=== PATIENT | male | born 1930 | race Caucasian/White ===

== ENCOUNTER 2018-07-03 09:07 | Day surgery (SDC) | payer MEDICARE, OTHER ==
[~2018-07-03] VITALS: Ht 177.8 cm; Wt 68.7 kg
[~2018-07-03 09:07] MED LIST: ALLO300 PO; ASCO500 PO; ASPI81CH; ASPI81CH PO; ASPI81EC PO; CALCA500CH; CALCA500CH PO; CALCAVITDA PO; CHOL10002 PO; CILO50; CODACE30 PO; CORAL CALCIUM1 EACH PO; Co Q-1010 MG PO; DAILY VALUE1 EACH PO; DIGO.25 PO; EPIN.3I IM; ESTER-C 1,0001 EACH PO; FAMO10 PO; FINA5 PO; FURO40 PO; Fergon240 M1 PO; Ferrous Sulfat325 M2 PO; Fibercon625 MG PO; HYDACE5 PO; HYDCHL25 PO; Hair, Skin & N1 EACH PO; Jantoven2 MG PO; KRILL OIL 5001 EACH PO; KRILL OIL500 MG PO; L-ARGININE1000 MG PO; LEVSOD50 PO; LIDO2L MM; LISI5 PO; MACA500 MG PO; METO25 PO; METO25ER; METO50ER PO; PROBIOTIC1 EAC1 PO; SIMV10 PO; SPIR25 PO; TAMS.4ER PO; UBID10 PO; VITAMIN D-32000 UNIT PO; VITAMIN E400 UNIT PO; WARF4 PO; WARF5 PO; [UNRECOGNIZED DRUG - OTHER] PO
== END 2018-07-03 12:00 | disposition home or self-care (01) ==
LOC: ORSCSDS 09:07
PROVIDERS: Orthopaedic Surgery
PROC: 01N40ZZ Release Ulnar Nerve, Open Approach (ICD-10-PCS; principal; 2018-07-03 10:30)
DX: G56.22 Lesion of ulnar nerve, left upper limb (principal); I48.0 Paroxysmal atrial fibrillation; I10 Essential (primary) hypertension; E03.9 Hypothyroidism, unspecified; N40.0 Benign prostatic hyperplasia without lower urinary tract symptoms; Z79.01 Long term (current) use of anticoagulants; Z79.82 Long term (current) use of aspirin; Z79.899 Other long term (current) drug therapy; Z87.891 Personal history of nicotine dependence
CPT/HCPCS: J0690; J1100; J2405; J2795; J3010; J7120

== ENCOUNTER 2019-01-16 08:47 | Emergency (ER) | payer MEDICARE, OTHER ==
[~2019-01-16] VITALS: Ht 177.8 cm; Wt 69.4 kg
[~2019-01-16 08:47] MED LIST changes: +ENOX40I SC; +Flecainide Acet50 MG PO; +L-ARGININE PO; +Percocet 5-3251 EACH PO
[2019-01-16] MEDS ORDERED: COLCHICINE0.6 MG PO (10:02)
== END 2019-01-16 10:11 | disposition home or self-care (01) ==
LOC: ER 08:47
DX: M10.9 Gout, unspecified (principal); I10 Essential (primary) hypertension; I48.91 Unspecified atrial fibrillation; Z91.030 Bee allergy status; Z88.8 Allergy status to other drugs, medicaments and biological substances; Z88.5 Allergy status to narcotic agent; Z79.899 Other long term (current) drug therapy; Z79.01 Long term (current) use of anticoagulants; Z87.891 Personal history of nicotine dependence
CPT/HCPCS: 73130; 99283-25

== ENCOUNTER 2019-01-29 10:35 | Day surgery (SDC) | payer MEDICARE, OTHER ==
[~2019-01-29] VITALS: Ht 175.3 cm; Wt 72.7 kg
[~2019-01-29 10:35] MED LIST changes: +COLCHICINE0.6 MG PO
== END 2019-01-29 12:28 | disposition home or self-care (01) ==
LOC: ORSCSDS 10:35
PROVIDERS: Anesthesiology
PROC: 3E0R33Z Introduction of Anti-inflammatory into Spinal Canal, Percutaneous Approach (ICD-10-PCS; principal; 2019-01-29 12:30)
DX: M51.16 Intervertebral disc disorders with radiculopathy, lumbar region (principal); I48.91 Unspecified atrial fibrillation; E03.9 Hypothyroidism, unspecified; E78.00 Pure hypercholesterolemia, unspecified; I10 Essential (primary) hypertension; Z87.891 Personal history of nicotine dependence; Z79.01 Long term (current) use of anticoagulants; Z79.82 Long term (current) use of aspirin; Z79.899 Other long term (current) drug therapy
CPT/HCPCS: J1040

== ENCOUNTER 2019-10-28 11:29 | Emergency (ER) | payer MEDICARE, OTHER ==
[~2019-10-28] VITALS: Ht 177.8 cm; Wt 68.0 kg
== END 2019-10-28 13:17 | disposition home or self-care (01) ==
LOC: ER 11:29
DX: M25.551 Pain in right hip (principal); I10 Essential (primary) hypertension; I48.91 Unspecified atrial fibrillation; N40.0 Benign prostatic hyperplasia without lower urinary tract symptoms; Z88.6 Allergy status to analgesic agent; Z91.030 Bee allergy status; Z79.01 Long term (current) use of anticoagulants; Z79.899 Other long term (current) drug therapy; Z87.891 Personal history of nicotine dependence; W19.XXXA Unspecified fall, initial encounter
CPT/HCPCS: 73502; 99283-25

== ENCOUNTER 2020-01-06 10:27 | Day surgery (SDC) | payer MEDICARE, OTHER ==
[~2020-01-06] VITALS: Ht 177.8 cm; Wt 70.5 kg
[~2020-01-06 10:27] MED LIST changes: +Aspir 8181 MG PO; +JANTOVEN2 MG PO
[2020-01-06] MEDS ORDERED: ELIQUIS5 MG PO (11:41)
--- NOTE | 2020-01-06 14:00 | NUR ---
PT AND HIS VERBALIZED UNDERSTANDING OF D/C INSTRUCTIONS. DISPO PAPERWORK PROVIDED TO TAKE HOME. PT TOLERATES PO FLUIDS WITH NO DIFFICULTIES, DENIES CP OR SOB, IS ABLE TO AMBULATE WITH STEADY GAIT, DRESSES SELF WITH NO NEEDED ASSISTANCE. IV REMOVED FROM RAC WITH CATH INTACT, PRESSURE DRESSING APPLIED. NO ACUTE DISTRESS NOTED AT TIME OF DISCHARGE. PT ENCOURAGED TO RESUME ALL PREVIOUSLY PRESCRIBED MEDICATIONS. VERBAL UNDERSTANDING FROM PT. W/C PROVIDED TO PT, TO DRIVE PT HOME. VSS.
== END 2020-01-06 23:21 | disposition home or self-care (01) ==
LOC: MHTC 10:27
PROC: 5A2204Z Restoration of Cardiac Rhythm, Single (ICD-10-PCS; principal; 2020-01-06)
DX: I48.92 Unspecified atrial flutter (principal); I25.10 Atherosclerotic heart disease of native coronary artery without angina pectoris; I11.0 Hypertensive heart disease with heart failure; I50.30 Unspecified diastolic (congestive) heart failure; I48.0 Paroxysmal atrial fibrillation; Z95.2 Presence of prosthetic heart valve; E03.9 Hypothyroidism, unspecified; Z79.01 Long term (current) use of anticoagulants; Z79.899 Other long term (current) drug therapy; Z88.8 Allergy status to other drugs, medicaments and biological substances
CPT/HCPCS: 92960; 93005; 93010; 93312; 93325; 99152; J2250; J3010; J7030

== ENCOUNTER 2020-07-09 00:26 | Day surgery (SDC) | payer MEDICARE, OTHER ==
[~2020-07-09 00:26] MED LIST changes: +ELIQUIS5 MG PO; -METO25 PO; +METO25ER PO; -VITAMIN D-32000 UNIT PO; +Vitamin D2000 UNIT PO
[2020-08-24] MEDS ORDERED: HYDROCHLOROTH12.5 MG PO (14:56)
== END 2020-07-09 22:44 | disposition home or self-care (01) ==
LOC: WOUND 00:26
DX: L89.892 Pressure ulcer of other site, stage 2 (principal); I73.9 Peripheral vascular disease, unspecified; G61.9 Inflammatory polyneuropathy, unspecified; I11.0 Hypertensive heart disease with heart failure; I50.9 Heart failure, unspecified; E03.9 Hypothyroidism, unspecified; Z79.899 Other long term (current) drug therapy

== ENCOUNTER 2020-07-16 00:19 | Day surgery (SDC) | payer MEDICARE, OTHER ==
[~2020-07-16 00:19] MED LIST changes: +METO25 PO; -METO25ER PO; +VITAMIN D-32000 UNIT PO; -Vitamin D2000 UNIT PO
== END 2020-07-16 23:11 | disposition home or self-care (01) ==
LOC: WOUND 00:19
DX: L89.892 Pressure ulcer of other site, stage 2 (principal); I73.9 Peripheral vascular disease, unspecified; G61.9 Inflammatory polyneuropathy, unspecified; Z79.899 Other long term (current) drug therapy
CPT/HCPCS: Q4196

== ENCOUNTER 2020-07-23 00:22 | Day surgery (SDC) | payer MEDICARE, OTHER ==
[~2020-07-23 00:22] MED LIST changes: -METO25 PO; +METO25ER PO; -VITAMIN D-32000 UNIT PO; +Vitamin D2000 UNIT PO
[2020-07-23] MEDS ORDERED: EUTHYROX50 MCG PO (13:54)
[2020-07-23] MEDS ORDERED: FURO20 PO (13:55)
[2020-07-23] MEDS ORDERED: POTA10T PO (13:56)
[2020-07-23] MEDS ORDERED: Coumadin2 MG PO (13:56)
[2020-07-23] MEDS ORDERED: ENTRESTO 24 MG1 EACH PO (13:59)
== END 2020-07-23 22:37 | disposition home or self-care (01) ==
LOC: WOUND 00:22
DX: L89.892 Pressure ulcer of other site, stage 2 (principal); I73.9 Peripheral vascular disease, unspecified; G61.9 Inflammatory polyneuropathy, unspecified
CPT/HCPCS: G0463

== ENCOUNTER 2020-07-24 07:23 | Day surgery (SDC) | payer MEDICARE, OTHER ==
[~2020-07-24] VITALS: Ht 172.7 cm; Wt 72.0 kg
[~2020-07-24 07:23] MED LIST changes: +Coumadin2 MG PO; +ENTRESTO 24 MG1 EACH PO; +EUTHYROX50 MCG PO; +FURO20 PO; +POTA10T PO
--- NOTE | 2020-07-24 11:29 | NUR ---
1110 PATIENT RETURNED FROM THE CATHLAB VIA RECLINER. SBAR RECEIVED FROM NICKI COLÓN AND TR BAND IN PLACE TO THE RIGHT RADIAL WITH WHITE BOARD IN PLACE. RIGHT BRACHIAL WITH DRESSING IN PLACE. NO BLEEDING FROM EITHER SITE. NO PAIN NOTED FROM THE PATIENT. TO THE BEDSIDE. PATIENT USING THE URINAL AND VOIDED 200 ML. CALL LIGHT IN REACH.
--- NOTE | 2020-07-24 14:15 | NUR ---
1410 ASSUMED CARE FROM NICKI BOJORQUEZ. ALL AIR HAS BEEN REMOVED FROM THE TR BAND. COBAN AND ARMBOARD TO THE RIGHT BRACHIAL ARM, FROM A HEMATOMA EARLIER AND HEMOSTASIS AFTER MANUAL PRESSURE HELD BY BING, RT. AT THE BEDSIDE. NO BLEEDING NOTED FROMT EH RIGHT RADIAL/BRACHAIL SITES. CALL LIGHT IN REACH.
--- NOTE | 2020-07-24 15:10 | NUR ---
1500 PIV REMOVED AND CATHETER TIP INTACT. PRESSURE DRESSING APPLIED TO THE LEFT ARM. PATIENT UP AND DRESSED WITH WIFES ASSISTANCE.NO PAIN NOTED. TR BAND REMOVED AND SITE CLEANED. CLOTH DOT APPLIED TO RIGHT RADIAL SITE. REPLACED THE WHITE BOARD TO THE RIGHT WRIST TO REMIND PATIENT NOT TO USE THE RIGHT HAND OR BEND AT THE WRIST. DRESSING TO THE RIGHT BRACHAIL UNCHANGED. NEPTUN PAD AND TEGADERM IN PLACE WITH SMALL OLD BLOOD SPOT IN THE CENTER OF THE DRESSING. ITHERWISE AREA AT THE ELBOW IS SOFT AND YET TENDER TO TOUCH. REVIEWED ALL DISCHARGE INSTRUCTIONS WITH THE PAIIENT ADN AND COPIES GIVEN. ALL BELONGINGS RETAINED BY PATIENT. CLOTHES, SHOES, HEARING AIDS, WATCH, AND INSTRUCTIONS.
--- NOTE | 2020-07-24 15:14 | NUR ---
PATIENT AND WAITING TO TALK WITH DR. ONTIVEROS ABOUT CATH REPORT RESULTS.
--- NOTE | 2020-07-24 15:59 | NUR ---
2287 PATIENT AND SPOKE WITH DR. ONTIVEROS, ALL QUESTIONS ANSWERED. WILL FOLLOW UP WITH RONNI MUHAMMAD IN THE OFFICE. DISCHARGED HOME VIA WHEELCHAIR TO CAR WITH DRIVING.
== END 2020-07-24 16:00 | disposition home or self-care (01) ==
LOC: MHTC 07:23
PROC: B201YZZ Plain Radiography of Multiple Coronary Arteries using Other Contrast (ICD-10-PCS; principal; 2020-07-24)
PROC: 4A023N8 Measurement of Cardiac Sampling and Pressure, Bilateral, Percutaneous Approach (ICD-10-PCS; principal; 2020-07-24)
DX: I25.10 Atherosclerotic heart disease of native coronary artery without angina pectoris (principal); I11.0 Hypertensive heart disease with heart failure; I50.20 Unspecified systolic (congestive) heart failure; I27.20 Pulmonary hypertension, unspecified; I48.0 Paroxysmal atrial fibrillation; I45.10 Unspecified right bundle-branch block; I73.9 Peripheral vascular disease, unspecified; E03.9 Hypothyroidism, unspecified; Z88.5 Allergy status to narcotic agent; Z87.891 Personal history of nicotine dependence; Z95.5 Presence of coronary angioplasty implant and graft; Z88.8 Allergy status to other drugs, medicaments and biological substances; Z91.030 Bee allergy status; Z79.82 Long term (current) use of aspirin; Z79.01 Long term (current) use of anticoagulants
CPT/HCPCS: 76937; 85347; 93456; 93571; 99152; 99153; C1769; C1887; C1894; J0153; J1644; J2250; J3010; J7030; J7050; Q9967

== ENCOUNTER 2020-07-27 00:35 | Day surgery (SDC) | payer MEDICARE, OTHER | END 2020-07-27 22:52 | disposition home or self-care (01) | LOC: WOUND 00:35 | DX: L89.892 Pressure ulcer of other site, stage 2 (principal); I73.9 Peripheral vascular disease, unspecified; G61.9 Inflammatory polyneuropathy, unspecified; I11.0 Hypertensive heart disease with heart failure; I50.9 Heart failure, unspecified; Z79.899 Other long term (current) drug therapy | CPT/HCPCS: G0463 ==

== ENCOUNTER 2020-08-04 00:46 | Day surgery (SDC) | payer MEDICARE, OTHER | END 2020-08-04 22:44 | disposition home or self-care (01) | LOC: WOUND 00:46 | DX: L89.892 Pressure ulcer of other site, stage 2 (principal); I73.9 Peripheral vascular disease, unspecified; G61.9 Inflammatory polyneuropathy, unspecified | CPT/HCPCS: G0463 ==

== ENCOUNTER 2020-08-10 00:21 | Day surgery (SDC) | payer MEDICARE, OTHER ==
[2020-08-10] MEDS ORDERED: Flecainide Acet50 MG PO (15:16)
[2020-08-11] MEDS ORDERED: SPIR25 PO (11:15)
[2020-08-24] MEDS ORDERED: HYDROCHLOROTH12.5 MG PO (14:56)
== END 2020-08-10 22:48 | disposition home or self-care (01) ==
LOC: WOUND 00:21
DX: L89.892 Pressure ulcer of other site, stage 2 (principal); I73.9 Peripheral vascular disease, unspecified; G61.9 Inflammatory polyneuropathy, unspecified; I11.0 Hypertensive heart disease with heart failure; I50.9 Heart failure, unspecified; E03.9 Hypothyroidism, unspecified; Z79.899 Other long term (current) drug therapy; Z79.82 Long term (current) use of aspirin

== ENCOUNTER 2020-08-11 10:50 | Day surgery (SDC) | payer MEDICARE, OTHER ==
[~2020-08-11] VITALS: Ht 177.8 cm; Wt 72.7 kg
[2020-08-11] MEDS ORDERED: SPIR25 PO (11:15)
--- NOTE | 2020-08-11 17:10 | NUR ---
1650 PATIENT ARRIVED BACK FROM THE CATHLAB. LEFT FEMORAL ARTERY ACCESS SITE CLOSED WITH ANGIOSEAL. RIGHT LOWER EXTREMITY WARM. NON HEALING ULCER TO THE RIGHT HEEL, NO DRAINAGE NOTED. PULSE FAINT, VERIFIED WITH DOPPLER TO BOTH PEDALS. AT THE BEDSIDE AND HOB UP 15 DEGREES, EATING DINNER WITH ASSISTANCE FROM THE .
--- NOTE | 2020-08-11 17:18 | NUR ---
1710 PATIENT COMPLAINED OF BACK PAIN. ADJUSTED IN THE BED FOR COMFORT AND GIVEN TYLENOL 650 MG PO ORDERED.
--- NOTE | 2020-08-11 18:19 | NUR ---
174 BACK PAIN EASING AFTER TYLENOL PO. AT THE BEDSIDE. VVS.
--- NOTE | 2020-08-11 18:38 | NUR ---
1835 PATIENT UP OOB. LEFT GROIN SITE DRESSING CDI. NO DIZZINESS. ASSISTING WITH DRESSING. PIV TO THE LEFT AC DISCONTINUED AND PRESSURE DRESSING APPLIED. PATIENT ABLE TO STAND WITHOUT DIFFICULTY. BEGAN DISCAHRGE INSTRUCTIONS WITH PATIENT AND . ALL QUESTIONS ANSWERED. COPIES GIVEN TO THE PATIENT. PATIENT IS DUE TO RETURN FOR WORK ON THE OTHER LEG ADN FOLLOW UP IN 4 WEEKS IN THE OFFICE.
--- NOTE | 2020-08-11 18:57 | NUR ---
9620 PATIENT DISCHARGED HOME VIA WHEELCHAIR TO THE CAR WITH DRIVING. NO PAIN NOTED FROM THE PATIENT.
== END 2020-08-11 19:00 | disposition home or self-care (01) ==
LOC: MHTC 10:50
DX: I70.213 Atherosclerosis of native arteries of extremities with intermittent claudication, bilateral legs (principal); Z88.5 Allergy status to narcotic agent; Z91.030 Bee allergy status; Z88.8 Allergy status to other drugs, medicaments and biological substances
CPT/HCPCS: 37225; 37229; 37232; 75625; 75716; 75774; 85347; 99152; 99153; A9270; C1714; C1725; C1760; C1769; C1884; C1887; C1894; C2623; J1644; J2250; J3010; J7030; Q9967

== ENCOUNTER 2020-08-14 09:48 | Emergency (ER) | payer MEDICARE, OTHER ==
[~2020-08-14] VITALS: Ht 177.8 cm; Wt 72.6 kg
[2020-08-14 10:55] LABS: BASOPHILS ABSOLUTE AUTO 0.02 K/mm3 (0.00-0.23); BASOPHILS PERCENT AUTO 0 % (0-2); EOSINOPHILS ABSOLUTE AUTO 0.06 K/mm3 (0.00-0.68); EOSINOPHILS PERCENT AUTO 1 % (0-6); Hematocrit 42.5 % (37.0-53.0); Hemoglobin 13.2 g/dL (13.5-17.5); IMMATURE GRAN ABSOLUTE AUTO 0.01 K/mm3 (0.00-0.10); IMMATURE GRAN PERCENT AUTO 0 % (0-1); LYMPHOCYTES ABSOLUTE AUTO 1.05 K/mm3 (0.84-5.20); LYMPHOCYTES PERCENT AUTO 13 % (21-46); MONOCYTES ABSOLUTE AUTO 0.56 K/mm3 (0.16-1.47); MONOCYTES PERCENT AUTO 7 % (4-13); Mean Corpuscular HGB 30.8 pg (26.0-34.0); Mean Corpuscular HGB Conc 31.1 g/dL (31.5-36.5); Mean Corpuscular Volume 99 fL (80-100); Mean Platelet Volume 12.7 fL (9.1-12.4); NEUTROPHILS ABSOLUTE AUTO 6.32 K/mm3 (1.96-9.15); NEUTROPHILS PERCENT AUTO 79 % (41-73); Platelet Count 117 K/mm3 (150-400); RDW Coefficient Variation 16.6 % (11.7-14.2); RDW Standard Deviation 60.1 fL (35.1-46.3); Red Blood Cell Count 4.29 M/mm3 (4.30-5.90); White Blood Cell Count 8.02 K/mm3 (4.00-11.30)
[2020-08-14 11:09] LABS: International Normalized Ratio 1.13
[2020-08-14 11:17] LABS: Anion Gap 5 mmol/L (6-16); Blood Urea Nitrogen 16 mg/dL (8-24); Bun/Creatinine Ratio 19.1 (12.0-20.0); CO2, Blood 29 mmol/L (21-32); Calcium, Blood 8.5 mg/dL (8.5-10.1); Chloride, Blood 107 mmol/L (98-108); Creatinine, Blood 0.84 mg/dL (0.60-1.20); Glomerular Filtration Rate >60 (60-); Glucose, Blood 117 mg/dL (70-99); Potassium, Blood 4.3 mmol/L (3.5-5.5); Sodium, Blood 141 mmol/L (136-145)
[2020-08-14] MEDS ORDERED: Cipro500 MG PO (12:50)
== END 2020-08-14 13:09 | disposition home or self-care (01) ==
LOC: ER 09:48
PROVIDERS: Physician Assistant
DX: L97.419 Non-pressure chronic ulcer of right heel and midfoot with unspecified severity (principal); R60.0 Localized edema; I10 Essential (primary) hypertension; I48.91 Unspecified atrial fibrillation; Z88.5 Allergy status to narcotic agent; Z79.82 Long term (current) use of aspirin; Z79.01 Long term (current) use of anticoagulants; Z91.030 Bee allergy status; Z79.899 Other long term (current) drug therapy; Z87.891 Personal history of nicotine dependence
CPT/HCPCS: 36415; 80048; 85025; 85610; 87070; 87075; 87205; 93926; 99283-25

== ENCOUNTER 2020-08-18 05:29 | Day surgery (SDC) | payer MEDICARE, OTHER ==
[~2020-08-18 05:29] MED LIST changes: +Cipro500 MG PO
[2020-08-24] MEDS ORDERED: HYDROCHLOROTH12.5 MG PO (14:56)
== END 2020-08-18 23:02 | disposition home or self-care (01) ==
LOC: WOUND 05:29
DX: I96 Gangrene, not elsewhere classified (principal); L89.892 Pressure ulcer of other site, stage 2; I11.0 Hypertensive heart disease with heart failure; I50.9 Heart failure, unspecified; D64.9 Anemia, unspecified; J44.9 Chronic obstructive pulmonary disease, unspecified; I49.9 Cardiac arrhythmia, unspecified; E07.9 Disorder of thyroid, unspecified; M19.90 Unspecified osteoarthritis, unspecified site; G61.9 Inflammatory polyneuropathy, unspecified; Z88.5 Allergy status to narcotic agent; Z91.038 Other insect allergy status; Z91.09 Other allergy status, other than to drugs and biological substances; Z79.82 Long term (current) use of aspirin; Z79.01 Long term (current) use of anticoagulants; Z79.2 Long term (current) use of antibiotics; Z79.899 Other long term (current) drug therapy
CPT/HCPCS: G0463

== ENCOUNTER 2020-08-21 01:56 | Day surgery (SDC) | payer MEDICARE, OTHER ==
[2020-08-24] MEDS ORDERED: HYDROCHLOROTH12.5 MG PO (14:56)
== END 2020-08-21 22:37 | disposition home or self-care (01) ==
LOC: WOUND 01:56
DX: L89.892 Pressure ulcer of other site, stage 2 (principal); I73.9 Peripheral vascular disease, unspecified; G61.9 Inflammatory polyneuropathy, unspecified; I11.0 Hypertensive heart disease with heart failure; I50.9 Heart failure, unspecified; E03.9 Hypothyroidism, unspecified; Z79.899 Other long term (current) drug therapy

== ENCOUNTER 2020-08-25 07:56 | Day surgery (SDC) | payer MEDICARE, OTHER ==
[~2020-08-25] VITALS: Ht 172.7 cm; Wt 71.0 kg
[~2020-08-25 07:56] MED LIST changes: +HYDROCHLOROTH12.5 MG PO
--- NOTE | 2020-08-25 09:55 | NUR ---
PT TO RECOVERY ROOM POST PROCEDURE. PT IS DROWSY, BUT ANSWERING QUESTIONS APPROPRIATELY, DENIES PAIN POST PROCEDURE. MONITOR AFIB 80-90'S, B/P 144/78, AFEBRILE, SPO2 91% RA. R GROIN NO SWELLING/HEMATOMA, TEGADERM DRSG INTACT; ANGIO SEAL DEPLOYED. RLE : 2 + X 2 LLE: 1+ X 2 POST PROCEDURE. OT TAKING SIPS OF JUICE.
--- NOTE | 2020-08-25 12:25 | NUR ---
PT MANGO ELEVATEMark AND TOOK LUNCH WITHOUT PROBLEM, SITE UNCHANGED.
--- NOTE | 2020-08-25 12:45 | NUR ---
PT AMB TO BATHROOM, GAIT STEADY, VOIDED QS; SITE UNCHANGED. PT GETTING DRESSED WITH ASSISTANCE FROM .
--- NOTE | 2020-08-25 13:00 | NUR ---
PT DRESSED, SITE UNCHANGED; IV REMOVED-CANNULA INTACT. PT AND RECEIVED DISHCARGE INSTRUCTIONS, MED LIST AND AFTER CARE INSTRUCTIONS; VERBALIZED GOOD UNDERSTANDING. PT LEFT FACILITY VIA W/C, CONDITION STABLE.
== END 2020-08-25 13:00 | disposition home or self-care (01) ==
LOC: MHTC 07:56
DX: I70.261 Atherosclerosis of native arteries of extremities with gangrene, right leg (principal); I70.212 Atherosclerosis of native arteries of extremities with intermittent claudication, left leg; I11.0 Hypertensive heart disease with heart failure; I50.9 Heart failure, unspecified; E03.9 Hypothyroidism, unspecified; Z87.891 Personal history of nicotine dependence; Z88.5 Allergy status to narcotic agent; Z91.030 Bee allergy status; Z88.8 Allergy status to other drugs, medicaments and biological substances; Z79.82 Long term (current) use of aspirin; Z79.899 Other long term (current) drug therapy; Z79.01 Long term (current) use of anticoagulants
CPT/HCPCS: 37228; 37232; 75710; 99152; 99153; C1725; C1760; C1769; C1887; C1894; J1644; J2250; J3010; J7030; Q9967

== ENCOUNTER 2020-08-28 01:59 | Day surgery (SDC) | payer MEDICARE, OTHER | END 2020-08-28 22:44 | disposition home or self-care (01) | LOC: WOUND 01:59 | DX: L89.892 Pressure ulcer of other site, stage 2 (principal); I73.9 Peripheral vascular disease, unspecified; G61.9 Inflammatory polyneuropathy, unspecified; I11.0 Hypertensive heart disease with heart failure; I50.9 Heart failure, unspecified; E03.9 Hypothyroidism, unspecified; Z79.899 Other long term (current) drug therapy; Z79.82 Long term (current) use of aspirin; Z79.01 Long term (current) use of anticoagulants ==

== ENCOUNTER 2020-09-04 02:16 | Day surgery (SDC) | payer MEDICARE, OTHER | END 2020-09-04 22:59 | disposition home or self-care (01) | LOC: WOUND 02:16 | DX: L89.892 Pressure ulcer of other site, stage 2 (principal); I73.9 Peripheral vascular disease, unspecified; G61.9 Inflammatory polyneuropathy, unspecified; I11.0 Hypertensive heart disease with heart failure; I50.9 Heart failure, unspecified; E03.9 Hypothyroidism, unspecified; Z79.899 Other long term (current) drug therapy ==

== ENCOUNTER 2020-09-18 00:51 | Day surgery (SDC) | payer MEDICARE, OTHER | END 2020-09-18 23:12 | disposition home or self-care (01) | LOC: WOUND 00:51 | DX: L89.892 Pressure ulcer of other site, stage 2 (principal); I73.9 Peripheral vascular disease, unspecified; G61.9 Inflammatory polyneuropathy, unspecified ==

== ENCOUNTER 2020-09-25 00:22 | Day surgery (SDC) | payer MEDICARE, OTHER | END 2020-09-25 22:53 | disposition home or self-care (01) | LOC: WOUND 00:22 | DX: I96 Gangrene, not elsewhere classified (principal); L89.892 Pressure ulcer of other site, stage 2; I11.0 Hypertensive heart disease with heart failure; I50.9 Heart failure, unspecified; I48.0 Paroxysmal atrial fibrillation; G61.9 Inflammatory polyneuropathy, unspecified; E03.9 Hypothyroidism, unspecified; N40.0 Benign prostatic hyperplasia without lower urinary tract symptoms; M19.90 Unspecified osteoarthritis, unspecified site; M10.9 Gout, unspecified; D64.9 Anemia, unspecified; J44.9 Chronic obstructive pulmonary disease, unspecified; I49.9 Cardiac arrhythmia, unspecified; Z79.82 Long term (current) use of aspirin; Z79.01 Long term (current) use of anticoagulants; Z79.899 Other long term (current) drug therapy; Z88.5 Allergy status to narcotic agent; Z88.8 Allergy status to other drugs, medicaments and biological substances; Z91.038 Other insect allergy status | CPT/HCPCS: G0463 ==

== ENCOUNTER 2020-10-07 03:13 | Day surgery (SDC) | payer MEDICARE, OTHER | END 2020-10-07 23:31 | disposition home or self-care (01) | LOC: WOUND 03:13 | DX: L89.892 Pressure ulcer of other site, stage 2 (principal); G61.9 Inflammatory polyneuropathy, unspecified; J44.9 Chronic obstructive pulmonary disease, unspecified; I11.0 Hypertensive heart disease with heart failure; I50.9 Heart failure, unspecified; I49.9 Cardiac arrhythmia, unspecified; E07.9 Disorder of thyroid, unspecified; M19.90 Unspecified osteoarthritis, unspecified site; Z79.01 Long term (current) use of anticoagulants; Z79.899 Other long term (current) drug therapy; Z88.5 Allergy status to narcotic agent; Z88.8 Allergy status to other drugs, medicaments and biological substances; Z91.030 Bee allergy status; Z87.891 Personal history of nicotine dependence | CPT/HCPCS: G0463 ==

== ENCOUNTER 2020-10-12 01:35 | Day surgery (SDC) | payer MEDICARE, OTHER | END 2020-10-12 22:48 | disposition home or self-care (01) | LOC: WOUND 01:35 | DX: L89.892 Pressure ulcer of other site, stage 2 (principal); I73.9 Peripheral vascular disease, unspecified; G61.9 Inflammatory polyneuropathy, unspecified; I11.0 Hypertensive heart disease with heart failure; I50.9 Heart failure, unspecified; Z79.899 Other long term (current) drug therapy | CPT/HCPCS: G0463 ==

== ENCOUNTER 2020-10-23 01:05 | Day surgery (SDC) | payer MEDICARE, OTHER | END 2020-10-23 23:14 | disposition home or self-care (01) | LOC: WOUND 01:05 | DX: L89.892 Pressure ulcer of other site, stage 2 (principal); I73.9 Peripheral vascular disease, unspecified; G61.9 Inflammatory polyneuropathy, unspecified; I11.0 Hypertensive heart disease with heart failure; I50.9 Heart failure, unspecified; E03.9 Hypothyroidism, unspecified; Z79.899 Other long term (current) drug therapy | CPT/HCPCS: G0463 ==

== ENCOUNTER 2020-11-03 00:38 | Day surgery (SDC) | payer MEDICARE, OTHER | END 2020-11-03 23:00 | disposition home or self-care (01) | LOC: WOUND 00:38 | DX: I96 Gangrene, not elsewhere classified (principal); L89.892 Pressure ulcer of other site, stage 2; D64.9 Anemia, unspecified; J44.9 Chronic obstructive pulmonary disease, unspecified; M19.90 Unspecified osteoarthritis, unspecified site; I48.0 Paroxysmal atrial fibrillation; I11.0 Hypertensive heart disease with heart failure; I50.9 Heart failure, unspecified; E03.9 Hypothyroidism, unspecified; N40.0 Benign prostatic hyperplasia without lower urinary tract symptoms; M10.9 Gout, unspecified; G61.9 Inflammatory polyneuropathy, unspecified; Z88.5 Allergy status to narcotic agent; Z88.8 Allergy status to other drugs, medicaments and biological substances; Z91.030 Bee allergy status; Z79.01 Long term (current) use of anticoagulants; Z79.82 Long term (current) use of aspirin; Z79.899 Other long term (current) drug therapy ==

== ENCOUNTER 2020-11-17 00:39 | Day surgery (SDC) | payer MEDICARE | END 2020-11-17 22:48 | disposition home or self-care (01) | LOC: WOUND 00:39 | DX: L89.892 Pressure ulcer of other site, stage 2 (principal); I73.9 Peripheral vascular disease, unspecified; G61.9 Inflammatory polyneuropathy, unspecified ==

== ENCOUNTER 2020-11-24 00:43 | Day surgery (SDC) | payer MEDICARE, OTHER ==
[~2020-11-24 00:43] MED LIST changes: -Aspir 8181 MG PO; -Coumadin2 MG PO; -EUTHYROX50 MCG PO; -FURO20 PO; -METO25ER PO; -POTA10T PO; -Vitamin D2000 UNIT PO
== END 2020-11-24 22:48 | disposition home or self-care (01) ==
LOC: WOUND 00:43
DX: L89.892 Pressure ulcer of other site, stage 2 (principal); I73.9 Peripheral vascular disease, unspecified; G61.9 Inflammatory polyneuropathy, unspecified; I11.0 Hypertensive heart disease with heart failure; I50.9 Heart failure, unspecified; I48.0 Paroxysmal atrial fibrillation; E03.9 Hypothyroidism, unspecified; Z79.01 Long term (current) use of anticoagulants
CPT/HCPCS: A9270

== ENCOUNTER 2020-12-08 00:24 | Day surgery (SDC) | payer MEDICARE, OTHER | END 2020-12-08 22:52 | disposition home or self-care (01) | LOC: WOUND 00:24 | DX: L89.612 Pressure ulcer of right heel, stage 2 (principal); G61.9 Inflammatory polyneuropathy, unspecified; I73.9 Peripheral vascular disease, unspecified; I48.0 Paroxysmal atrial fibrillation; I11.0 Hypertensive heart disease with heart failure; I50.9 Heart failure, unspecified; E03.9 Hypothyroidism, unspecified; M10.9 Gout, unspecified; M19.071 Primary osteoarthritis, right ankle and foot; N40.0 Benign prostatic hyperplasia without lower urinary tract symptoms; Z85.828 Personal history of other malignant neoplasm of skin; Z85.028 Personal history of other malignant neoplasm of stomach | CPT/HCPCS: A9270 ==

== ENCOUNTER 2020-12-24 00:38 | Day surgery (SDC) | payer MEDICARE, OTHER | END 2020-12-24 22:50 | disposition home or self-care (01) | LOC: WOUND 00:38 | DX: L89.892 Pressure ulcer of other site, stage 2 (principal); I73.9 Peripheral vascular disease, unspecified; G61.9 Inflammatory polyneuropathy, unspecified; I10 Essential (primary) hypertension; I48.91 Unspecified atrial fibrillation; E03.9 Hypothyroidism, unspecified; N40.0 Benign prostatic hyperplasia without lower urinary tract symptoms; M10.9 Gout, unspecified; M19.071 Primary osteoarthritis, right ankle and foot; Z79.01 Long term (current) use of anticoagulants; Z86.79 Personal history of other diseases of the circulatory system | CPT/HCPCS: A9270 ==

== ENCOUNTER 2021-01-07 00:17 | Day surgery (SDC) | payer MEDICARE, OTHER | END 2021-01-07 23:44 | disposition home or self-care (01) | LOC: WOUND 00:17 | DX: L89.892 Pressure ulcer of other site, stage 2 (principal); L97.429 Non-pressure chronic ulcer of left heel and midfoot with unspecified severity; I73.9 Peripheral vascular disease, unspecified; G61.9 Inflammatory polyneuropathy, unspecified; I48.0 Paroxysmal atrial fibrillation; I11.0 Hypertensive heart disease with heart failure; I50.9 Heart failure, unspecified; E03.9 Hypothyroidism, unspecified; I35.0 Nonrheumatic aortic (valve) stenosis; Z85.828 Personal history of other malignant neoplasm of skin; Z85.028 Personal history of other malignant neoplasm of stomach | CPT/HCPCS: A9270 ==

== ENCOUNTER 2021-01-14 00:16 | Day surgery (SDC) | payer MEDICARE, OTHER | END 2021-01-14 23:03 | disposition home or self-care (01) | LOC: WOUND 00:16 | DX: L89.892 Pressure ulcer of other site, stage 2 (principal); I73.9 Peripheral vascular disease, unspecified; G61.9 Inflammatory polyneuropathy, unspecified; I11.0 Hypertensive heart disease with heart failure; I50.9 Heart failure, unspecified | CPT/HCPCS: A9270 ==

== ENCOUNTER 2021-01-21 00:26 | Day surgery (SDC) | payer MEDICARE, OTHER | END 2021-01-21 22:57 | disposition home or self-care (01) | LOC: WOUND 00:26 | DX: L97.422 Non-pressure chronic ulcer of left heel and midfoot with fat layer exposed (principal); L89.892 Pressure ulcer of other site, stage 2; M79.662 Pain in left lower leg; G61.9 Inflammatory polyneuropathy, unspecified; R60.0 Localized edema; I73.00 Raynaud's syndrome without gangrene; M19.90 Unspecified osteoarthritis, unspecified site; N40.0 Benign prostatic hyperplasia without lower urinary tract symptoms; I48.0 Paroxysmal atrial fibrillation; I35.0 Nonrheumatic aortic (valve) stenosis; I50.9 Heart failure, unspecified; I11.0 Hypertensive heart disease with heart failure; E03.9 Hypothyroidism, unspecified; Z85.828 Personal history of other malignant neoplasm of skin; Z85.00 Personal history of malignant neoplasm of unspecified digestive organ | CPT/HCPCS: 36415; 80053; 85025; 93971; A9270 ==

== ENCOUNTER 2021-01-28 00:21 | Day surgery (SDC) | payer MEDICARE, OTHER | END 2021-01-28 23:00 | disposition home or self-care (01) | LOC: WOUND 00:21 | DX: L89.892 Pressure ulcer of other site, stage 2 (principal); I73.9 Peripheral vascular disease, unspecified; G61.9 Inflammatory polyneuropathy, unspecified; I73.00 Raynaud's syndrome without gangrene; R60.9 Edema, unspecified; M79.662 Pain in left lower leg; I48.0 Paroxysmal atrial fibrillation; I11.0 Hypertensive heart disease with heart failure; I50.9 Heart failure, unspecified; E03.9 Hypothyroidism, unspecified; Z85.828 Personal history of other malignant neoplasm of skin; Z85.028 Personal history of other malignant neoplasm of stomach ==

== ENCOUNTER 2021-02-07 10:39 | Inpatient (IN) | payer MEDICARE, OTHER ==
[~2021-02-07] VITALS: Ht 182.9 cm; Wt 73.3 kg
[2021-02-07 11:03] LABS: BASOPHILS ABSOLUTE AUTO 0.03 K/mm3 (0.00-0.23); BASOPHILS PERCENT AUTO 0 % (0-2); EOSINOPHILS PERCENT AUTO 0 % (0-6); Hemoglobin 12.4 g/dL (13.5-17.5); IMMATURE GRAN ABSOLUTE AUTO 0.07 K/mm3 (0.00-0.10); IMMATURE GRAN PERCENT AUTO 0 % (0-1); LYMPHOCYTES ABSOLUTE AUTO 0.41 K/mm3 (0.84-5.20); LYMPHOCYTES PERCENT AUTO 2 % (21-46); MONOCYTES ABSOLUTE AUTO 0.94 K/mm3 (0.16-1.47); MONOCYTES PERCENT AUTO 5 % (4-13); Mean Corpuscular HGB 30.8 pg (26.0-34.0); Mean Corpuscular HGB Conc 31.8 g/dL (31.5-36.5); Mean Corpuscular Volume 97 fL (80-100); Mean Platelet Volume 12.1 fL (9.1-12.4); NEUTROPHILS ABSOLUTE AUTO 16.86 K/mm3 (1.96-9.15); NEUTROPHILS PERCENT AUTO 92 % (41-73); Platelet Count 136 K/mm3 (150-400); RDW Coefficient Variation 15.5 % (11.7-14.2); RDW Standard Deviation 55.8 fL (35.1-46.3); Red Blood Cell Count 4.03 M/mm3 (4.30-5.90); White Blood Cell Count 18.31 K/mm3 (4.00-11.30)
[2021-02-07 11:09] LABS: Base Excess Venous 6.4 mmol/L; Bicarbonate Venous 28.8 mmol/L (24.0-30.0); PCO2 Venous 49.3 mmHg (38-42); PO2 Venous 46.9 mmHg (38-42); pH Blood Venous 7.41 (7.34-7.37)
[2021-02-07 11:17] LABS: International Normalized Ratio 2.23; Prothrombin Time Results 22.8 Sec (9.7-11.5)
[2021-02-07 11:24] LABS: Alanine Aminotransfer (ALT/SGP 19 U/L (12-78); Albumin, Blood 3.1 g/dL (3.4-5.0); Alk Phos 113 U/L (50-136); Anion Gap 6 mmol/L (6-16); Aspartate Aminotrans (AST/SGOT 12 U/L (12-37); Bilirubin, Total 1.4 mg/dL (0.1-1.0); Blood Urea Nitrogen 21 mg/dL (8-24); Bun/Creatinine Ratio 23.3 (12.0-20.0); CO2, Blood 28 mmol/L (21-32); Calcium, Blood 8.4 mg/dL (8.5-10.1); Chloride, Blood 103 mmol/L (98-108); Globulin, Blood 3.1 g/dL (2.2-4.0); Glomerular Filtration Rate >60 (60-); Glucose, Blood 192 mg/dL (70-99); Potassium, Blood 4.7 mmol/L (3.5-5.5); Sodium, Blood 137 mmol/L (136-145); Total Protein, Blood 6.2 g/dL (6.4-8.2)
[2021-02-07] MEDS ORDERED: Aspir 8181 MG PO (14:30)
[2021-02-07] MEDS ORDERED: TAMS.4ER PO (14:30)
[2021-02-07] MEDS ORDERED: SIMV10 PO (14:30)
[2021-02-07] MEDS ORDERED: ALLO300 PO (14:30)
[2021-02-07] MEDS ORDERED: METO25ER PO (14:30)
[2021-02-07] MEDS ORDERED: LEVSOD75 PO (14:31)
[2021-02-07] MEDS ORDERED: POTA10T PO (14:31)
[2021-02-07] MEDS ORDERED: Coumadin2 MG PO (14:32)
[2021-02-07] MEDS ORDERED: ENTRESTO 24 MG1 EACH PO (14:32)
[2021-02-07] MEDS ORDERED: ALDACTONE25 MG PO (14:32)
[2021-02-07] MEDS ORDERED: Vitamin D2000 UNIT PO (14:33)
[2021-02-07] MEDS ORDERED: Nitroglycerin1 EAC3 TD (14:33)
[2021-02-07] MEDS ORDERED: FURO20 PO (14:34)
[2021-02-07] MEDS ORDERED: NITR.4SL SL (14:34)
[2021-02-07] MEDS ORDERED: PROBIOTIC1 EA13 PO (14:35)
--- NOTE | 2021-02-07 16:40 | NUR ---
PT ARRIVED TO PCU 15 VIA GURNEY. PT ALERT, ORIENTED TO SELF AND LOCATION. PT APPEARS DYSPNEIC, BUT STATES HE IS ONLY A LITTLE SHORT OF BREATH. LUNGS ARE CLEAR, 2L/NC TO KEEP SATS ABOVE 90%. PT COMPLAINS OF BEING COLD, BUT TEMP 100.4F. AFIB RVR WITH RATE IN THE 130S UPON ARRIVAL BUT SETTLED DOWN TO 110S ONCE PT WAS RESTING. PT WITH OPEN WOUND ON L HEEL AND SMALL WOUND ON R HEEL. L LEG IS SLIGHTLY MORE SWOLLEN THAN R, IS HOT TO TOUCH COMPARED TO R, AND HAS LIGHT PINK COLORATION. DRESSINGS APPLIED TO EACH WOUND. PT'S AT THE BEDSIDE AND REVIEWED MEDICATIONS AND MEDICAL HISTORY WITH LEATHER HEEL BREASTER ANAHY. PT RESTING QUIETLY AT THIS TIME. CONTINUE TO MONITOR.
[2021-02-07] MEDS ORDERED: METO50ER PO (17:27)
[2021-02-07 18:22] LABS: Source, Urine Catheter
[2021-02-07 18:31] LABS: Bilirubin, Urine Neg (Neg); Blood, Urine 1+ (Neg); Glucose Qualitative, Urine Neg (Neg); Ketones, Urine 1+ (Neg); Leukocyte Esterase, Urine 1+ (Neg); Nitrite, Urine Neg (Neg); Protein, Urine 2+ (Neg); Specific Gravity, Urine 1.015 (1.003-1.022); Urobilinogen, Urine 1+ (Normal)
[2021-02-07 18:35] LABS: Influenza A Negative (NEGATIVE); Influenza B Negative (NEGATIVE)
[2021-02-07 18:40] LABS: Appearance, Urine Hazy (Clear); Color, Urine Yellow (P-Yellow)
--- NOTE | 2021-02-07 18:42 | NUR ---
DR. MAURO BY TO SEE PT. REQUESTED PT HAVE A CHEST CT AND FLU SWAB. PT HAS BEEN INCONTINENT SO UA HASN'T BEEN OBTAINED. DR. MAURO GAVE OK FOR STRAIGHT CATH. PT WENT TO CT AND TOLERATED IT WELL. STRAIGHT CATH AFTER CT FOR DARK YELLOW URINE. PT TOLERATED THAT WELL WELL. ATTENDS CHANGED AND PT REPOSITIONED. PT RESTING IN BED. BED ALARM ON.
[2021-02-07 18:46] LABS: Amorphous Heavy (0-Heavy); Bacteria Mod /hpf; Red Blood Cells, Urine 0-2 /hpf (0-2); Squamous Epithelial Cells Rare /hpf (Few)
--- NOTE | 2021-02-07 21:53 | NUR ---
CRITICAL LAB LAB VOCERA'D TO NOTIFY PT HAD POSITIVE BLOOD CULTURE RESULT: GRAM+ COCCI IN [place]. CALL PLACED TO PHARMACY. PHARMACY CONFIRMED PT'S VANCOMYCIN COVERS THIS BACTERIA.
[2021-02-08 04:32] LABS: International Normalized Ratio 1.91; Prothrombin Time Results 19.7 Sec (9.7-11.5)
[2021-02-08 04:38] LABS: Alanine Aminotransfer (ALT/SGP 17 U/L (12-78); Albumin, Blood 2.8 g/dL (3.4-5.0); Albumin/Globulin Ratio 0.8 (0.8-1.8); Alk Phos 87 U/L (50-136); Anion Gap 5 mmol/L (6-16); Aspartate Aminotrans (AST/SGOT 18 U/L (12-37); Blood Urea Nitrogen 31 mg/dL (8-24); Bun/Creatinine Ratio 32.5 (12.0-20.0); CO2, Blood 30 mmol/L (21-32); Calcium, Blood 8.2 mg/dL (8.5-10.1); Chloride, Blood 104 mmol/L (98-108); Creatinine, Blood 0.96 mg/dL (0.60-1.20); Globulin, Blood 3.4 g/dL (2.2-4.0); Glomerular Filtration Rate >60 (60-); Glucose, Blood 177 mg/dL (70-99); Potassium, Blood 4.6 mmol/L (3.5-5.5); Sodium, Blood 139 mmol/L (136-145); Total Protein, Blood 6.2 g/dL (6.4-8.2)
--- NOTE | 2021-02-08 05:38 | NUR ---
SHIFT SUMMARY PT ALERT, ORIENTED TO SELF, FOLLOWING DIRECTIONS. PLEASANT. SP02>90% ON 3L NC. OCCASIONAL COUGH AND SLIGHT WHEEZE WHEN TALKING. TELEMETRY READS AFIB, HR 80'S-120'S THIS SHIFT. PT HAD SLIGHT TEMPERATURE ELEVATION AT START OF SHIFT BUT HAS SINCE RESOLVED. PT INCONTINENT OF URINE, C/D ATTENDS IN PLACE. FULL LINEN CHANGE. FLUIDS INFUSED PER EMAR THIS SHIFT. ABX INFUSED PER EMAR. PT SLEPT T/O NIGHT. CALL LIGHT INREACH. WILL GIVE REPORT TO ONCOMING NURSE.
[2021-02-08 07:35] LABS: Hemoglobin 12.2 g/dL (13.5-17.5); Mean Corpuscular HGB 31.4 pg (26.0-34.0); Mean Corpuscular HGB Conc 31.3 g/dL (31.5-36.5); Mean Corpuscular Volume 101 fL (80-100); Mean Platelet Volume 12.6 fL (9.1-12.4); Platelet Count 103 K/mm3 (150-400); RDW Coefficient Variation 15.9 % (11.7-14.2); RDW Standard Deviation 59.2 fL (35.1-46.3); Red Blood Cell Count 3.88 M/mm3 (4.30-5.90); White Blood Cell Count 17.86 K/mm3 (4.00-11.30)
--- NOTE | 2021-02-08 17:08 | NUR ---
SHIFT SUMMARY PT A&Ox2, FORGETFUL AT TIMES. RESTING IN BED, UP IN CHAIR FOR MEALS WITH 1 PERSON ASSIST. PT DENIES PAIN, CHEST PAIN, NAUSEA AND DIZZINESS. PT SOB WITH EXERTION, ON 3L O2 VIA NC. PT RECEIVING IV ANTIBIOTICS. HR ELEVATED THIS AFTERNOON, MEDICATED WITH PRN METOPROLOL. OTHER VSS. NO OTHER ACUTE CHAGNES NOTED. WILL CONTINUE TO MONITOR UNITL REPORT GIVEN TO ONCOMING RN.
[2021-02-09 04:19] LABS: International Normalized Ratio 3.17; Prothrombin Time Results 31.8 Sec (9.7-11.5)
[2021-02-09 04:23] LABS: Anion Gap 4 mmol/L (6-16); Blood Urea Nitrogen 35 mg/dL (8-24); Bun/Creatinine Ratio 42.1 (12.0-20.0); CO2, Blood 29 mmol/L (21-32); Calcium, Blood 7.9 mg/dL (8.5-10.1); Chloride, Blood 105 mmol/L (98-108); Creatinine, Blood 0.83 mg/dL (0.60-1.20); Glomerular Filtration Rate >60 (60-); Glucose, Blood 138 mg/dL (70-99); Potassium, Blood 4.3 mmol/L (3.5-5.5); Sodium, Blood 138 mmol/L (136-145)
--- NOTE | 2021-02-09 04:58 | NUR ---
CIRCULAR RIPSAW OPERATOR SUMMARY NO ACUTE CHANGES THIS SHIFT. PT AAOX2-3, FORGETFUL AT TIMES BUT ANSWERS QUESTIONS APPROPIRATELY AND CALLS FOR ASSISTANCE APPROPRIATELY. HR HAS BEEN AVG 90'S TO 110'S. ONE TIME DOSE OF LASIX 20MG IV GIVEN AT BEDTIME, PT HAS USED URINAL INDEPENDENTLY 150-200 ML AT A TIME AND HAS ALSO BEEN INCONTINENT X1. VSS, WILL CONTINUE TO MONITOR.
[2021-02-09 14:36] LABS: Vancomycin, Trough 12.1 ug/mL (5.0-10.0)
--- NOTE | 2021-02-09 17:18 | NUR ---
SHIFT SUMMARY PT A&Ox2; FORGETFUL BUT COOPERATIVE WITH CARE. PT RESTING IN BED, UP IN ROOM WITH 1 PERSON ASSIST. PT DENIES PAIN, CHEST PAIN, SOB, NASUEA AND DIZZINESS. PT RECEIVING IV ANTIBIOTICS. PT ON 3L O2 VIA NC, TITRATED TO 2L O2 VIA NC. NO OTHER ACUTE CHANGES NOTED. WILL CONTINUE TO MONITOR UNTIL REPORT GIVEN TO ONCOMING RN.
--- NOTE | 2021-02-09 19:11 | NUR ---
report called to Rn assuming care of pt, pt transfered to room 313 at 1904.
--- NOTE | 2021-02-09 19:30 | NUR ---
PT ARRIVED TO FLOOR, TRANSFER FROM PCU. O2 AT 3L/MIN PER NC. HOB ELEVATED. RAILS UP X 3. CALL LIGHT IN REACH.
--- NOTE | 2021-02-09 19:47 | NUR ---
BP 95/56. LEGS ELEVATED. ALERT AND ORINETED. STATES FEELING "PRETTY GOOD". CALL LIGHT IN REACH
--- NOTE | 2021-02-10 02:49 | NUR ---
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 CALL PLACED TO THE PHARMACY RE NEED TO CALL MD FOR FURTHER ANTIBIOTICS. PHARMACIST STATED NO, THE VANCO COVERS THE GM + COCCI WELL. PT ASYMPTOMATIC.
--- NOTE | 2021-02-10 03:54 | NUR ---
SHIFT SUMMARY HAS BEEN RSTING QUIETLY WITH FEW INTERRUPTIONS THIS SHIFT SINCE PT ARRIVED LAST EVENING. BP WAS LOW AND LEGS ELEVATED, PROCEDURE EFFECTIVE, BP RETURNED TO PTS BASELINE AFTER THAT. O2 PER NC, NO C/O VOICED. BLOOD CULTURES POSITIVE (SEE LABS) AND PHARMACY NOTIFIED, ANTIBIOTIS (YADIRA) ADDRESES THE NEW POSITIVE CULTURES WELLL. CALL LIGHT IN REACH. RAILS UP X 3.
--- NOTE | 2021-02-10 04:21 | NUR ---
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 NO NEW ORDERS FROM .
[2021-02-10 05:21] LABS: Prothrombin Time Results 47.3 Sec (9.7-11.5)
[2021-02-10 05:35] LABS: International Normalized Ratio 4.83
--- NOTE | 2021-02-10 17:36 | NUR ---
NO ACUTE CHANGES TO PT. HE IS ALERT AND ABLE TO EXPRESS ANY NEEDS. HIS IS AT BEDSIDE. PT IS FRIENDLY AND COMPLIANT WITH CARE. NO DISTRESS OR PAIN NOTED THIS SHIFT. PT UP IN CHAIR AT THIS TIME. CALL LIGHT WITHIN REACH.
[2021-02-11 05:06] LABS: BASOPHILS ABSOLUTE AUTO 0.02 K/mm3 (0.00-0.23); BASOPHILS PERCENT AUTO 0 % (0-2); EOSINOPHILS ABSOLUTE AUTO 0.09 K/mm3 (0.00-0.68); EOSINOPHILS PERCENT AUTO 1 % (0-6); Hematocrit 33.2 % (37.0-53.0); Hemoglobin 10.5 g/dL (13.5-17.5); IMMATURE GRAN ABSOLUTE AUTO 0.04 K/mm3 (0.00-0.10); IMMATURE GRAN PERCENT AUTO 0 % (0-1); LYMPHOCYTES ABSOLUTE AUTO 0.49 K/mm3 (0.84-5.20); LYMPHOCYTES PERCENT AUTO 5 % (21-46); MONOCYTES ABSOLUTE AUTO 1.16 K/mm3 (0.16-1.47); MONOCYTES PERCENT AUTO 11 % (4-13); Mean Corpuscular HGB 31.2 pg (26.0-34.0); Mean Corpuscular HGB Conc 31.6 g/dL (31.5-36.5); Mean Corpuscular Volume 99 fL (80-100); Mean Platelet Volume 12.5 fL (9.1-12.4); NEUTROPHILS ABSOLUTE AUTO 8.35 K/mm3 (1.96-9.15); NEUTROPHILS PERCENT AUTO 82 % (41-73); Platelet Count 89 K/mm3 (150-400); RDW Coefficient Variation 15.3 % (11.7-14.2); RDW Standard Deviation 54.8 fL (35.1-46.3); Red Blood Cell Count 3.37 M/mm3 (4.30-5.90); White Blood Cell Count 10.15 K/mm3 (4.00-11.30)
--- NOTE | 2021-02-11 05:19 | NUR ---
SHIFT SUMMARY PT HAD AN UNEVENTFUL NIGHT. DRESSING TO LEFT HEEL REMAINED C/D/I. OLD DRY ULCERS TO RIGHT HEEL. PT DENIES ANY PAIN. REPORTS CHRONIC N/T TO BILATERAL FEET. PT INCONTINENT/CONTINENT. BRIEF IN PLACE. VITAL SIGNS STABLE. NO ACUTE CHANGES THIS SHIFT. WILL CONTINUE TO MONITOR AND REPORT TO DAY RN.
[2021-02-11 05:23] LABS: Prothrombin Time Results 47.8 Sec (9.7-11.5)
[2021-02-11 05:39] LABS: Anion Gap 3 mmol/L (6-16); Blood Urea Nitrogen 32 mg/dL (8-24); Bun/Creatinine Ratio 37.1 (12.0-20.0); CO2, Blood 32 mmol/L (21-32); Calcium, Blood 8.2 mg/dL (8.5-10.1); Chloride, Blood 105 mmol/L (98-108); Creatinine, Blood 0.86 mg/dL (0.60-1.20); Glomerular Filtration Rate >60 (60-); Glucose, Blood 155 mg/dL (70-99); Potassium, Blood 4.3 mmol/L (3.5-5.5); Sodium, Blood 140 mmol/L (136-145)
[2021-02-11 06:03] LABS: International Normalized Ratio 4.89
[2021-02-11 14:40] LABS: Vancomycin, Trough 15.6 ug/mL (5.0-10.0)
--- NOTE | 2021-02-11 18:14 | NUR ---
SHIFT SUMMARY PATIENT DENIES PAIN AND NAUSEA THIS SHIFT. WOUND CARE COMPLETED ON LEFT HEEL. PATIENT UP SBA TO CHAIR FOR LUNCH. THIS AFTERNOON AFTER PT PATIENT BECAME SHAKY AND REPORTED FEELING COLD. PATIENT FEBRILE AT 99.1, WITH TACHY IRREGULAR HEART RATE, COLD EXTREMITIES AND VERY DYPNEIC. CALL TO DR. MAURO, WHO CAME TO BEDSIDE. NEW ORDERS FOR EKG, TELE, OXIMETRY, IV LOPRESSOR 5MG X1, IV LASIX 40MG X1, AND ALBUTEROL NEB X1. OXYGEN INCREASED FROM 3L TO 5-6L/NC TO MAINTAIN OXYGEN SATURATION ABOVE 90%. EKG SHOWS AFIB IN 130'S. HR AFIB IN 110'S AFTER LOPRESSOR. PATIENT RESTING QUIETLY WITH NO SIGNS OF DISTRESS. AND DAUGHTER AT BEDSIDE. PALLIATIVE CARE CONSULTED AND WILL MEET WITH FAMILY TOMORROW.
--- NOTE | 2021-02-11 21:00 | NUR ---
PT HYPOTENSIVE THIS EVENING WITH HS VITAL CHECKS. TELEMETRY AFIB IN THE 120'S. PT IS VERY CLAMMY WITH DECREASED LEVEL OF CONSIOUSNESS. WAKES WHEN SPOKEN TO BUT QUICKLY FALLS BACK ASLEEP. CALL MADE TO DR. BAH, CARPET MECHANIC HOSPITALIST. ORDER TO TRANSFER TO ICU. REPORT CALLED TO [place] HOSPITALIST PHYSICIAN. CALLED AND DAUGHTER TO UPDATE ON PT STATUS. DAUGHTER STATED THAT THEY HAVE BEEN HAVING DISCUSSIONS ABOUT LEANING TOWARDS PALLIATIVE CARE/HOSPICE. PT IS DNR BUT IS NOT COMFORT CARE AT THIS TIME. INFORMED HOSPITALIST PHYSICIAN OF CONVERSATION WITH AND DAUGHTER. PT BEING TRANSFERED VIA BED TO ICU 3 BY CHARGE RNS DELBERT AND GERALD.
--- NOTE | 2021-02-11 21:10 | NUR ---
ICU ADMISSION: PT ARRIVES TRANSFER FROM MEDICAL FLOOR. PER REPORTING RN, PT HAS BECOMING INCREASINGLY SOMNOLENT, DIAPHORETIC, & W/ MOTTLED SKIN TONE THROUGHOUT THE DAY. O2 REQUIREMENTS INC FROM 3L TO 7L & PT CONVERTED TO AFIB W/ RATE INC TO THE 130s. ALL OF WHICH PROMPTED HIS ARRIVAL TO THE ICU. UPON ARRIVAL PT IS SOMNOLENT. NO VERBAL RESPONSE BUT DOES OPEN EYES, SQUEEZE HANDS, & NOD UPON COMMAND. SHAKES HEAD NO WHEN ASKED IF HE IS IN PAIN & NODS YES WHEN ASKED IF HE IS TIRED. MONITOR INDICATES AFIB w/ RATE 90-115. SBP 95. PT APPEARS PALE, MILDLY DIAPHORETIC, WARM TO THE TOUCH. FAMILY TO ARRIVE SHORTLY TO DISCUSS THEIR WISHES.
--- NOTE | 2021-02-11 22:10 | NUR ---
UPATE: FAMILY ARRIVES TO UNIT. ORIENTED TO ROOM/CALL LIGHT/STAFF. UPDATED ON PT's REGRESSION THROUGHOUT THE DAY TODAY. PT'S DAUGHTER & SPOUSE EXPRESS THEIR WISH TO HAVE THE PT PLACED ON COMFORT CARE. FAMILY INFORMED OF WHAT THIS WOULD ENTAIL & THAT PALLIATIVE CARE WOULD BE HERE IN THE MORNING TO DISCUSS FURTHER. FAMILY VERBALIZED UNDERSTANDING. FAMILY PROVIDED W/ PRIVACY, SEATING. DR BAH CALLED & UPDATED. HE WILL PLACE COMFORT CARE ORDERS & PT WILL BE TRANSFERRED BACK TO MEDICAL FLOOR SHORTLY.
--- NOTE | 2021-02-11 22:44 | NUR ---
REPORT GIVEN TO NICKI ORDOÑEZ ON MEDICAL FLOOR. PT OOTD. [place]. FAMILY FOLLOWING.
--- NOTE | 2021-02-12 05:52 | NUR ---
SHIFT SUMMARY PT ARRIVED BACK FROM ICU AFTER FAMILY MADE DECISION TO MAKE PT COMFORT CARE. PT APPEARED IMPROVED AFTER TRANSFER. ONLY MILDLY DIAPHORETIC WHICH PT'S FAMILY STATES IS NORMAL FOR HIM. PT AWAKE AND CONVERSING WELL. PT DOES CONTINUE TO BE FAIRLY TIRED AND SLEPT A GOOD PORTION OF THE NIGHT. DENIES ANY PAIN OR DISCOMFORT. DRANK A LARGE GLASS OF JUICE. SUCTION SET UP AT BEDSIDE PT'S DAUGHTER REPORTED HE HAD COUGHED UP SOME SECRETIONS X 2 WHILE STAFF WERE NOT IN THE ROOM. DAUGHTER AND AT BEDSIDE. PT APPEARS COMFORTABLE. WILL CONTINUE TO MONITOR.
[2021-02-12 11:00] LABS: Anion Gap 4 mmol/L (6-16); Blood Urea Nitrogen 42 mg/dL (8-24); Bun/Creatinine Ratio 34.7 (12.0-20.0); CO2, Blood 31 mmol/L (21-32); Calcium, Blood 8.2 mg/dL (8.5-10.1); Chloride, Blood 105 mmol/L (98-108); Creatinine, Blood 1.21 mg/dL (0.60-1.20); Glomerular Filtration Rate >60 (60-); Glucose, Blood 202 mg/dL (70-99); Potassium, Blood 4.3 mmol/L (3.5-5.5); Sodium, Blood 140 mmol/L (136-145)
--- NOTE | 2021-02-12 11:10 | NUR ---
Brief supportive visit this AM. Pt resting in bed upon arrival. Pt's daughter and spouse at bedside. Answered questions and discussed plan of care. Pt reports experiencing acid reflux. Plan is to see how Pt responds to treatment over the weekend and then revisit goals of care. Spoke with Dr Escobar and relayed Pt's symptoms. Pepcid will be ordered. Spoke with Bedside NICKI Dang and discussed case. Palliative Care will remain availale.
--- NOTE | 2021-02-12 19:38 | NUR ---
SHIFT SUMMARY PATIENT DENIES PAIN, NAUSEA, AND SHORTNESS OF BREATH. PATIENT MAINTAINING OXYGEN SATURATION ABOVE 92% ON 6L/NC. PATIENT REPOSITIONED FREQUENTLY IN BED. DRESSING ON LEFT HEEL C/D/I. FAMILY AT BEDSIDE. NEW ORDERS FOR VISCOUS LIDOCAINE SWISH AND SPIT. PATIENT REPORTS LIDOCAINE WORKING WELL FOR MOUTH TENDERNESS. PALLIATIVE CARE CONSULTING.
--- NOTE | 2021-02-13 04:41 | NUR ---
FURNITURE SANDER SUMMARY PT SLEPT WELL TONIGHT. DENIES PAIN, NAUSEA, SOB. CONTINUES TO BE ON 60 O2 VIA NC MAINTAING GOOD O2 SATS. LIDOCAINE SWISH AND SWALLOW HAS WORKED WELL FOR MOUTH SORE. DAUGHTER BEEN BY BEDSIDE OVERNIGHT. NO SECRETIONS. WILL CONTINUE TO MONITOR. CALL LIGHT WITHIN REACH.
[2021-02-13 07:37] LABS: International Normalized Ratio 1.93; Prothrombin Time Results 19.9 Sec (9.7-11.5)
[2021-02-13 07:38] LABS: Calcium, Blood 8.3 mg/dL (8.5-10.1); Creatinine, Blood 1.37 mg/dL (0.60-1.20); Potassium, Blood 4.6 mmol/L (3.5-5.5)
--- NOTE | 2021-02-13 11:06 | NUR ---
BP RUNNING LOW THIS AM, LASIX AND METOPROLOL HELD. DR. MACARIO NOTIFIED, RECIEVED ORDER FOR NS 1L BOLUS NOW. PT IS IN NO DISCOMFORT OR DISTRESS THUS FAR THIS SHIFT.
--- NOTE | 2021-02-13 16:38 | NUR ---
Spoke with Bedside RN Fabian and discussed case. Pt's B/P decreased today and bolus. Vanco also restarted. Pt resting in bed and denies pain at this time. Pt denies nause, and anxiety. Pt does report mild but manageable dyspnea. Spouse and daughter at bedside. Offered therapeutic listening and answered questions. Pt and family express appreciation of visit and report no concerns at this time. Palliative Care will remain available for supportive visits.
--- NOTE | 2021-02-13 18:48 | NUR ---
SHIFT SUMMMARY. PT IS ALERT, CONVERSIVE, PLEASANT AND COOPERATIVE WITH CARE. FAMILY AT BEDSIDE ENTIRE SHIFT. PT HYPOTENSIVE THIS AM, RECIVED ORDERS FOR 1L NS BOLUS FROM DR. MACARIO. AFTER BOLUS INFUSED OVER TWO HOURS PT STILL HYPOTENSIVE, ALSO CHART REVEALED THAT VANCO CONSULT HAD BEEN D/C'D 02/11, DR. MACARIO NOTIFIED, RECIEVED ORDERS FOR SECOND 1L NS BOLUS AND VANCO CONSULT FOR PHARMACY. PT RECIEVED VANCO AND BOLUS, BP IS NOW WNL.
--- NOTE | 2021-02-13 18:58 | NUR ---
LUNGS CLEAR PRE AND POST BOLUSES.
[2021-02-14 04:34] LABS: BASOPHILS ABSOLUTE AUTO 0.02 K/mm3 (0.00-0.23); BASOPHILS PERCENT AUTO 0 % (0-2); EOSINOPHILS ABSOLUTE AUTO 0.02 K/mm3 (0.00-0.68); EOSINOPHILS PERCENT AUTO 0 % (0-6); Hematocrit 32.2 % (37.0-53.0); IMMATURE GRAN ABSOLUTE AUTO 0.09 K/mm3 (0.00-0.10); IMMATURE GRAN PERCENT AUTO 1 % (0-1); LYMPHOCYTES ABSOLUTE AUTO 0.37 K/mm3 (0.84-5.20); LYMPHOCYTES PERCENT AUTO 4 % (21-46); MONOCYTES ABSOLUTE AUTO 1.04 K/mm3 (0.16-1.47); MONOCYTES PERCENT AUTO 10 % (4-13); Mean Corpuscular HGB Conc 31.1 g/dL (31.5-36.5); Mean Corpuscular Volume 100 fL (80-100); NEUTROPHILS ABSOLUTE AUTO 8.59 K/mm3 (1.96-9.15); NEUTROPHILS PERCENT AUTO 85 % (41-73); Platelet Count 73 K/mm3 (150-400); RDW Coefficient Variation 14.9 % (11.7-14.2); RDW Standard Deviation 54.9 fL (35.1-46.3); Red Blood Cell Count 3.23 M/mm3 (4.30-5.90); White Blood Cell Count 10.13 K/mm3 (4.00-11.30)
[2021-02-14 04:46] LABS: International Normalized Ratio 2.19; Prothrombin Time Results 22.4 Sec (9.7-11.5)
[2021-02-14 04:55] LABS: Calcium, Blood 7.8 mg/dL (8.5-10.1); Creatinine, Blood 1.3 mg/dL (0.60-1.20); Potassium, Blood 4.3 mmol/L (3.5-5.5)
--- NOTE | 2021-02-14 05:01 | NUR ---
DISTRICT OPERATIONS MANAGER SUMMARY PT HAS MAJORITY OF SHIFT. SLIGHT ELEVATED TEMP DURING SHIFT. MEDICATED WITH TYLENOL. PT DENIES PAIN, NAUSEA, SOB. PT ABLE TO DRINK THICKENED LIQUIDS. TAKES MEDS CRUSHED IN APPLE SAUCE. DAUGHTER HAS BEEN AT BEDSIDE ALL NIGHT. CONTINUES TO BE ON 6L O2 VIA NC. REMAINS HYPOTENSIVE. DRESSING ON L HEEL IS C.D.I. FREQUENT REPOSITIONING PROVIDED.
--- NOTE | 2021-02-14 10:09 | NUR ---
Pt resting in bed upon arrival. Pt reports pain is managed with current regimen. Pt appears frail and lethargic. [facility] Discussed current POC. Offered therapeutic listenig as Pt's spouse and daughter reports feeling Pt is ready to focus on just comfort. Dr Hnery in to see Pt. Relayed family's wishes. Dr Henry discussed further and is in agreement. Continued therapeutic visit. Engaged in therapeutic discussio with Pt regarding goals of care. Pt confirms wanting to stop all treatment and focus just on comfort. Family is in agreement. Re-enforced comfort care philosophy with V/U made by family. Offered emotional support as family is intermittently tearful. Family expresses appreciation of visit and report no other concerns at this time. D/C maintenance medications per V/O from Dr Henry. Pt already as comfort care order and comfort medictions available. Continued Lasix and Pepcid PRN for comfort. Spoke with Bedside RN Fabian and discussed case. Palliative Care will remain availabe for symptom management and supportive visits.
--- NOTE | 2021-02-14 14:43 | NUR ---
JEWELL CATHETER PLACED PER FAMILY REQUEST, PT AGREED WITH FAMILY. STERILE TECHNIQUE MAINTAINED.
--- NOTE | 2021-02-14 18:20 | NUR ---
SHIFT SUMMARY. FAMILY AT BEDSIDE ENTIRE SHIFT, PT AND FAMILY HAVE OPTED TO DISCONTINUE TREATMENT AND CONTINUE WITH ONLY COMFORT MEASURES, SEE PALLIATIVE CARE NOTE. PT WITH MINIMAL APPETITE AND FLUID INTAKE. PT C/O BACK PAIN TWICE THIS SHIFT, PAIN MANAGED WELL WITH CURRENT ORDERS. JEWELL CATHETER PLACED TODAY, DRAINING YELLOW URINE AND PATENT. NO OTHER CHANGES OR CONCERNS.
--- NOTE | 2021-02-15 04:38 | NUR ---
CUSTOMER RETENTION REPRESENTATIVE SUMMARY PT SLEPT WELL TONIGHT. DAUGHTER HAS BEEN BY BEDSIDE ALL NIGHT. CONTINUES TO BE ON 6L VIA NC. PT HAS BEEN MEDICATED WITH ROXANOL A FEW TIMES FOR PAIN AND INCREASED RESPIRATIONS. PT HAS REFUSED TO BE REPOSITIONED MOST OF THE TIME. JEWELL IN PLACE, PATENT AND DRAINING URINE. CALL LIGHT WITHIN REACH.
--- NOTE | 2021-02-15 15:19 | NUR ---
Made a visit to pt's room today and he appeared to be sleeping, with even unlabored respirations. His Darcie is at the bedside. She taked about their life together and being for over 60 years and having 3 daughters. She tells me their middle daughter about 2 years ago, and the oldest daughter cared for her before she . Darcie states she and her , the pt have talked extensively about the future, and she feels confident this is the right way and time for comfort care. She states he is tired, and is "ready to go. Will remain availabe for visits as needed.
--- NOTE | 2021-02-15 15:48 | NUR ---
Spiritual care note: Pt and family non-adventist. and dtr present at [facility]. Mr. Yeung was non-responsive and appeared peaceful. Family asked about next steps. I provided home info and gentle anticipatory bereavement counselor education professor. Family reports peace with pt's impending passing and tell me they just want him comfortable. They seem to be processing appropriately. I will remain available.
--- NOTE | 2021-02-15 17:14 | NUR ---
SHIFT SUMMARY PATIENT IS A COMFORT CARE PATIENT. PATIENT WAKES MINIMALLY TO SOUND OR TOUCH. PATIENT NODS YES OCCASIONALLY WHEN QUESTIONED, OTHERWISE HAS BEEN VASTLY UNRESPONSIVE. PATIENT MEDICATED FOR PAIN THROUGHOUT THIS SHIFT. PATIENT'S DAUGHTER AND AT BEDSIDE THROUGHOUT THIS SHIFT. PATIENT MEDICATED FOR PAIN MULTIPLE TIMES THIS SHIFT. PATIENT REPOSITIONED REGULARLY THROUGHOUT THIS SHIFT. PATIENT'S FAMILY STATE NO ADDITIONAL NEEDS AT THIS TIME.
--- NOTE | 2021-02-16 04:50 | NUR ---
SHIFT SUMMARY: COMFORT CARE STATUS. PT WAKES UP W/STIMULI. MAKES EYE CONTACT BUT DOES NOT SPEAK. DAUGHTER AT BEDSIDE. PT APPEARS COMFORTABLE, SLEEPING MOST OF THE NIGHT. RESPS REGULAR, NON-LAOBRED. F/C PATENT PRODUCING SMALL AMTS OF CONCENTRATED APPEARING CLOUDY URINE. DRESSING CHANGED TO LEFT HEEL WOUND DUE TO SMALL AMT OF DRAINAGE LEAKING THROUGH BANDAGE. PT BILLY WELL. ORAL CARE COMPLETED SEVERAL TIMES TO AID IN DRY LIPS AND MOUTH. WCTM.
--- NOTE | 2021-02-16 17:31 | NUR ---
SHIFT SUMMARY PATIENT IS ON COMFORT CARE. PATIENT OPENS EYES WHEN SPOKEN TO OR UPON TOUCH. PATIENT'S FAMILY IN THE ROOM THROUGHOUT THIS SHIFT. PATIENT PROVIDED WITH PAIN MEDICATION REGULARLY THROUGHOUT THIS SHIFT. BED BATH THIS AFTERNOON BY LABORER GOLD LEAF. PATIENT CURRENTLY LAYING IN BED RESTING WITH DAUGHTER AND AT BEDSIDE.
--- NOTE | 2021-02-16 18:12 | NUR ---
Spiritual care note: Provided emotional affirmation and encouragement to spouse and dtr at bedside. Mr. Yeung was non-responsive to voice/touch. He appears comfortable and family is pleased with compassionate care by nursing. Family seems to be processing this loss appropriately. I will remain available.
--- NOTE | 2021-02-16 22:26 | NUR ---
VTACH CALL FROM PCU BLENDER CONVEYOR OPERATOR FEBRUARY AROUND 2200 THAT PT HAD A SEVEN BEAT RUN OF VTACH. WHEN I CHECKED IN ON PT. HE WAS SLEEPING AND WITHOUT DISTRESS. MARGIE HIDALGO NP CALLED AND NOTIFIED. NO NEW ORDERS GIVEN.
--- NOTE | 2021-02-17 04:59 | NUR ---
SHIFT SUMMARY PT HAS SLEPT MOST OF THE NIGHT, PT MOSTLY NONRESPONSIVE OCCASIONALLY OPENING HIS EYES TO SOUND AND MOVEMENT. PT OPENS EYES AND GRIMACES SOME WITH REPOSITIONING. MEDICATION PROVIDED PRN FOR PAIN. DAUGHTER REMAINS AT BEDSIDE T/O SHIFT. ORAL CARE PERFORMED PRN. JEWELL IN PLACE WITH MINIMAL OUTPUT THIS SHIFT. COMFORT ASSESSED T/O SHIFT. BED IN LOWEST POSITION, CALL LIGHT WITHIN REACH.
--- NOTE | 2021-02-17 11:04 | NUR ---
Comfort Care Visit Pt resting in bed with his eyes closed. Pt's respirations increased. Family at bedside. Offered therapeutic listening. Spoke with Bedside RN Tiago and discussed case. Soumya is offering Roxanol for comfort. Roxanol increased from 5mg to 10mg for comfort. Palliative Care will remain available.
--- NOTE | 2021-02-17 17:24 | NUR ---
TIME OF CALLED AT 5:03, NOTIFIED AT 5:10 WITH FAMILY AT BEDSIDE. FAMILY WOULD LIKE [facility] TO BE CONTACTED. UNIT SUP NOTIFIED.
--- NOTE | 2021-02-17 18:54 | NUR ---
Spiritual care note: Provided supportive visit to family. Pt appeared very near end-of-life. and dtr had a few questions and responded well to affirmation of obvious love.
== END 2021-02-17 17:00 | DRG 871 ==
LOC: ER 10:39 → MEDS 13:54 → PCU 13:54 → ER 14:50 → PCU 15:10 → MEDS 02-09 19:04 → ICUE 02-11 21:06 → MEDS 02-11 22:55
PROVIDERS: Family Medicine; Pharmacist; Physician Assistant; ADMIT Hospitalist
DX: A41.02 Sepsis due to Methicillin resistant Staphylococcus aureus (principal); J18.9 Pneumonia, unspecified organism; J96.01 Acute respiratory failure with hypoxia; I31.3 Pericardial effusion (noninflammatory); I48.19 Other persistent atrial fibrillation; I50.22 Chronic systolic (congestive) heart failure; J91.8 Pleural effusion in other conditions classified elsewhere; J98.11 Atelectasis; L97.409 Non-pressure chronic ulcer of unspecified heel and midfoot with unspecified severity; Z51.5 Encounter for palliative care; Z66 Do not resuscitate; R65.20 Severe sepsis without septic shock; E03.9 Hypothyroidism, unspecified; E78.5 Hyperlipidemia, unspecified; I48.0 Paroxysmal atrial fibrillation; H91.90 Unspecified hearing loss, unspecified ear; I11.0 Hypertensive heart disease with heart failure; I35.0 Nonrheumatic aortic (valve) stenosis; I25.10 Atherosclerotic heart disease of native coronary artery without angina pectoris; M10.9 Gout, unspecified; N40.0 Benign prostatic hyperplasia without lower urinary tract symptoms; Z85.028 Personal history of other malignant neoplasm of stomach; Z85.828 Personal history of other malignant neoplasm of skin; Z87.891 Personal history of nicotine dependence
CPT/HCPCS: 36415; 51701; 71045; 71250; 73650; 73721; 80048; 80053; 80202; 81001; 82803; 83605; 83880; 84145; 84484; 85025; 85027; 85610; 85651; 85730; 86140; 87040; 87077; 87086; 87147; 87186; 87804; 93005; 93010; 93306; 94640; 94760; 94762; 96361; 96365; 96367; 97110; 97162; 99285-25; A9270; J0456; J0692; J0696; J1940; J2060; J3370; J7030; J7050; J7120